=== PATIENT | female | born 1960 | race Caucasian/White ===

== ENCOUNTER 2020-05-08 10:57 | Outpatient (REF) | payer BC, OTHER, SELFPAY ==
[2020-05-08 11:14] LABS: MANUAL DIFF FLAG NO
[2020-05-08 11:15] LABS: Basophils Absolute Auto 0.1 X10*3/uL (0.0-0.2); Basophils Percent Auto 1.1 % (0-2); Eosinophils Absolute Auto 0.1 X10*3/uL (0.0-0.4); Eosinophils Percent Auto 2.2 % (0-4); Hematocrit 44.7 % (37-47); Hemoglobin 15.4 g/dl (12.0-16.0); Imm Gran Abs Auto 0.01 X10*3/uL (0.00-0.03); Imm Gran Pct Auto 0.2 % (0.0-0.4); Lymphocytes Absolute Auto 2.7 X10*3/uL (1.2-4.9); Mean Corpuscular HGB Conc 34.5 g/dl (31.0-35.0); Mean Corpuscular Hemoglobin 30.2 pg (27.0-33.0); Mean Corpuscular Volume 87.6 fL (80-98); Mean Platelet Volume 10.3 fL (9.4-12.3); Monocytes Absolute Auto 0.6 X10*3/uL (0.1-1.2); Monocytes Percent Auto 8.8 % (2-11); Neutrophils Absolute Auto 2.8 X10*3/uL (2.0-8.3); Neutrophils Percent Auto 44.7 % (45-73); Platelet Count 185 X10*3/uL (160-400); Red Cell Distribution Width 12.7 % (11.0-16.0); White Blood Count 6.2 X10*3/uL (4.8-10.8)
[2020-05-08 12:02] LABS: Ferritin 187 ng/mL (10-250)
== END 2020-05-08 10:58 | disposition home or self-care (01) ==
LOC: HO.BBR 10:57
PROVIDERS: Visit Provider Internal Medicine
DX: E83.110 Hereditary hemochromatosis (principal)
CPT/HCPCS: 36415; 82728; 85025; 99195

== ENCOUNTER 2020-06-12 10:30 | Outpatient (REF) | payer BC, OTHER, SELFPAY ==
[2020-06-12 10:50] LABS: MANUAL DIFF FLAG NO
[2020-06-12 10:51] LABS: Basophils Absolute Auto 0.1 X10*3/uL (0.0-0.2); Basophils Percent Auto 1.3 % (0-2); Eosinophils Absolute Auto 0.1 X10*3/uL (0.0-0.4); Eosinophils Percent Auto 1.4 % (0-4); Hematocrit 45.1 % (37-47); Hemoglobin 15.5 g/dl (12.0-16.0); Imm Gran Abs Auto 0.02 X10*3/uL (0.00-0.03); Imm Gran Pct Auto 0.3 % (0.0-0.4); Lymphocytes Absolute Auto 2.7 X10*3/uL (1.2-4.9); Lymphocytes Percent Auto 38.1 % (20-40); Mean Corpuscular HGB Conc 34.4 g/dl (31.0-35.0); Mean Corpuscular Hemoglobin 30.2 pg (27.0-33.0); Mean Corpuscular Volume 87.7 fL (80-98); Mean Platelet Volume 10.3 fL (9.4-12.3); Monocytes Absolute Auto 0.6 X10*3/uL (0.1-1.2); Monocytes Percent Auto 8.5 % (2-11); Neutrophils Absolute Auto 3.6 X10*3/uL (2.0-8.3); Neutrophils Percent Auto 50.4 % (45-73); Platelet Count 208 X10*3/uL (160-400); Red Blood Count 5.14 X10*6/uL (4.20-5.50); Red Cell Distribution Width 12.3 % (11.0-16.0); White Blood Count 7.1 X10*3/uL (4.8-10.8)
[2020-06-12 11:39] LABS: Ferritin 101 ng/mL (10-250)
== END 2020-06-12 10:31 | disposition home or self-care (01) ==
LOC: HO.BBR 10:30
PROVIDERS: Visit Provider Internal Medicine
DX: E83.110 Hereditary hemochromatosis (principal)
CPT/HCPCS: 36415; 82728; 85025

== ENCOUNTER 2020-07-07 10:06 | Outpatient (REF) | payer BC, OTHER, SELFPAY ==
[2020-07-07 10:23] LABS: MANUAL DIFF FLAG NO
[2020-07-07 10:24] LABS: Basophils Absolute Auto 0.1 X10*3/uL (0.0-0.2); Basophils Percent Auto 1.1 % (0-2); Eosinophils Absolute Auto 0.1 X10*3/uL (0.0-0.4); Eosinophils Percent Auto 1.8 % (0-4); Hematocrit 44.3 % (37-47); Hemoglobin 14.9 g/dl (12.0-16.0); Imm Gran Abs Auto 0.01 X10*3/uL (0.00-0.03); Imm Gran Pct Auto 0.2 % (0.0-0.4); Lymphocytes Absolute Auto 2.4 X10*3/uL (1.2-4.9); Lymphocytes Percent Auto 39.3 % (20-40); Mean Corpuscular HGB Conc 33.6 g/dl (31.0-35.0); Mean Corpuscular Hemoglobin 29.3 pg (27.0-33.0); Mean Platelet Volume 10.2 fL (9.4-12.3); Monocytes Absolute Auto 0.5 X10*3/uL (0.1-1.2); Monocytes Percent Auto 7.6 % (2-11); Neutrophils Absolute Auto 3.1 X10*3/uL (2.0-8.3); Platelet Count 200 X10*3/uL (160-400); Red Blood Count 5.09 X10*6/uL (4.20-5.50); Red Cell Distribution Width 12.2 % (11.0-16.0); White Blood Count 6.2 X10*3/uL (4.8-10.8)
[2020-07-07 11:14] LABS: Ferritin 67 ng/mL (10-250)
== END 2020-07-07 10:07 | disposition home or self-care (01) ==
LOC: HO.BBR 10:06
PROVIDERS: Visit Provider Internal Medicine
DX: E83.110 Hereditary hemochromatosis (principal)
CPT/HCPCS: 36415; 82728; 85025

== ENCOUNTER 2020-09-01 10:24 | Outpatient (REF) | payer BC, OTHER, SELFPAY ==
[2020-09-01 10:42] LABS: MANUAL DIFF FLAG NO
[2020-09-01 10:44] LABS: Basophils Absolute Auto 0.1 X10*3/uL (0.0-0.2); Basophils Percent Auto 0.9 % (0-2); Eosinophils Absolute Auto 0.1 X10*3/uL (0.0-0.4); Eosinophils Percent Auto 1.7 % (0-4); Hematocrit 45.4 % (37-47); Hemoglobin 15.4 g/dl (12.0-16.0); Imm Gran Abs Auto 0.01 X10*3/uL (0.00-0.03); Imm Gran Pct Auto 0.2 % (0.0-0.4); Lymphocytes Absolute Auto 2.6 X10*3/uL (1.2-4.9); Lymphocytes Percent Auto 39.7 % (20-40); Mean Corpuscular HGB Conc 33.9 g/dl (31.0-35.0); Mean Corpuscular Hemoglobin 28.3 pg (27.0-33.0); Mean Corpuscular Volume 83.5 fL (80-98); Mean Platelet Volume 10.6 fL (9.4-12.3); Monocytes Absolute Auto 0.6 X10*3/uL (0.1-1.2); Monocytes Percent Auto 8.9 % (2-11); Neutrophils Absolute Auto 3.2 X10*3/uL (2.0-8.3); Neutrophils Percent Auto 48.6 % (45-73); Platelet Count 190 X10*3/uL (160-400); Red Blood Count 5.44 X10*6/uL (4.20-5.50); Red Cell Distribution Width 13.2 % (11.0-16.0); White Blood Count 6.6 X10*3/uL (4.8-10.8)
[2020-09-01 11:32] LABS: Ferritin 29 ng/mL (10-250)
== END 2020-09-01 10:25 | disposition home or self-care (01) ==
LOC: HO.BBR 10:24
PROVIDERS: Visit Provider Internal Medicine
DX: E83.110 Hereditary hemochromatosis (principal)
CPT/HCPCS: 36415; 82728; 85014; 85018; 85025; 99195

== ENCOUNTER → 2024-03-17 13:55 | Outpatient (RCR) | payer BC, OTHER, SELFPAY ==
[2020-07-10 08:30] VITALS: BMI 30.4
[2020-07-10 08:31] VITALS: BP 138/63; PULSE 77; RESP 20; TEMP 36.7; O2SAT 96
--- NOTE | 2020-07-10 08:32 | PM.HEMONCPN ---
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 CBC on 03/22/2020 revealed hemoglobin 16.9, hematocrit 51% normal WBC and platelets. AST 40, ALT 57, ferritin 381, iron saturation 32% serum erythropoietin level 10.45 in November 2018 which is normal. JAK2 V617 F mutation negative. MPL, CALR and JAK2 Exon 12 mutations negative. Interval History Interval history: Patient is here in follow-up. She is doing okay. She is tolerating the therapeutic phlebotomy quite well but reports mild symptoms of right ear pain which started a few days back. She feels a sensation of congestion of her sinuses. No fever or chills. No nasal or ear discharge. No chest pain or shortness of breath she is otherwise doing quite well. Review of Systems - Constitutional Reports as per HPI, Reports no additional constitutional complaints - Cardiovascular Reports no additional cardiovascular complaints - Respiratory Reports no additional respiratory complaints [facility] Medical History: Medical History (Last Updated 07/10/20 @ 09:02 by Vy Foster RN) Basal cell carcinoma High cholesterol Osteopenia Family History: Family History (Last Updated 07/10/20 @ 08:44 by Vy Foster RN) Father Parkinson disease Mother Ovarian cancer Sister ALS (amyotrophic lateral sclerosis) Brother Diabetes Surgical History: Surgical History (Last Updated 07/10/20 @ 09:02 by Vy Foster RN) H/O elbow surgery H/O: hysterectomy History of tonsillectomy Previous section Oncology Screenings - ECOG Performance Status ECOG Performance Status: 0 Home Medications and Allergies Home Medications Medication Instructions Recorded Confirmed Type Ca carb-D3-mag [id number]-Zn 1 tab PO DAILY 07/10/20 07/10/20 History [Caltrate + D3 Plus Minerals] aspirin 81 mg PO DAILY 07/10/20 07/10/20 History fluticasone propionate 1 spray INTRANASAL BID 07/10/20 07/10/20 History Allergies Allergy/AdvReac Type Severity Reaction Status Date / Time meperidine [From DEMEROL] Allergy Severe ANGIOEDEMA Unverified 04/10/20 08:27 adhesive [ADHESIVE] Allergy Intermediate RASH Unverified 04/10/20 08:27 erythromycin base Allergy Intermediate palpitation Unverified 04/10/20 08:27 [ERYTHROMYCIN BASE] s Exam Vital signs: Vital Signs Temp 98.1 F 07/10/20 08:31 Pulse 77 07/10/20 08:31 Resp 20 07/10/20 08:31 BP 138/63 07/10/20 08:31 Pulse Ox 96 07/10/20 08:31 Intake & Output 07/09/20 07/10/20 07/10/20 18:59 06:59 18:59 Other: Weight 83 kg Weight 83 kg Body Mass Index 30.4 - Constitutional Present: no acute distress - Routine HEENT Exam Head: Present: normal inspection Eye: Present: EOMI - Detailed ENT Exam Ear: Absent: TM bulging, TM erythema - Routine Neck Exam Present: normal inspection - Routine Respiratory Exam Present: CTAB - Routine Cardiovascular Exam Cardiovascular: Present: S1, S2 Progress Note: A/P (1) Hereditary hemochromatosis Status: Chronic Assessment and plan: 1. This is a 60-year-old woman with Hereditary hemochromatosis, heterozygous positivity for C282Y mutation. She received her 1st therapeutic phlebotomy in November 2019. She was also diagnosed with polycythemia, mutational analysis for P vera was negative. She is on therapeutic phlebotomy. Blood work on 07/07 showed significant improvement in iron studies. She will continue with therapeutic phlebotomy, decreased frequency to every other month. 2. Right ear pain. Exam did not reveal erythema or discharge. She was advised to take a decongestant and observe for a day or 2. If persistent or worsening call her PCP for antibiotics or further direction. Follow-up in 6 months. - Time Spent With Patient Total time spent is greater than 50% in coordination of care (as documented) at patient's floor/unit and/or counseling patient: 15 - 24 minutes
--- NOTE | 2020-07-10 09:04 | MHC.HEMONC ---
Patient seen for follow-up. Clinical summary updated with nurse. Provider seen patient. Follow-up booked,
== END | disposition home or self-care (01) ==
LOC: HO.ONC 07-10 08:18
PROVIDERS: PCP Nurse Practitioner Family; Visit Provider Internal Medicine
DX: E83.110 Hereditary hemochromatosis (principal); D75.1 Secondary polycythemia; H92.01 Otalgia, right ear
CPT/HCPCS: 99214